=== PATIENT | female | born 2000 | race Caucasian/White ===

== ENCOUNTER 2019-04-02 08:51 | Observation (INO) ==
[2019-04-02] MEDS ORDERED: SODIUM CHLORIDE 0.9% 1000ML 1,000 ML IV ONE (09:21)
[2019-04-02] MEDS ORDERED: CEFEPIME IV STA ×2 (09:21→10:12)
[2019-04-02] MEDS ORDERED: GENTAMICIN IV SCH (09:30)
[2019-04-02 09:51] LABS: Basophils # (auto) 0.01 K/uL (0-0.2); Basophils % (auto) 0.1 %; Eosinophils # (auto) 0.02 K/uL (0-0.5); Eosinophils % (auto) 0.2 %; Hematocrit (blood only) 29.5 % (37-47); Hemoglobin 10.1 g/dL (12.0-16.0); Immature Granulocytes # (auto) 0.01 K/uL (0.00-0.02); Immature Granulocytes % (auto) 0.1 %; Lymphocytes # (auto) 0.95 K/uL (1.2-3.4); Lymphocytes % (auto) 11.6 %; Mean Corpuscular Hemoglobin 35.6 pg (25-34); Mean Corpuscular Hgb Conc 34.2 g/dL (32-36); Mean Corpuscular Volume 103.9 fL (80-100); Monocytes # (auto) 1.18 K/uL (0.11-0.59); Monocytes % (auto) 14.4 %; Neutrophils # (auto) 6.02 K/uL (1.4-6.5); Neutrophils % (auto) 73.6 %; Platelet Count 359 K/uL (130-400); RDW Standard Deviation 57.7 fL (36.4-46.3); Red Blood Count 2.84 M/uL (4.2-5.4); White Blood Count 8.19 K/uL (4.8-10.8)
[2019-04-02 09:55] LABS: Appearance Urine Cloudy (Clear); Bacteria Urine Automated Negative (Negative); Bilirubin Urine Negative (Negative); Blood Urine 1+ (Negative); Color Urine Dark Yellow; Glucose Urine UA Negative (Negative); Ketones Urine Negative (Negative); Leukocyte Esterase Urine Negative (Negative); Nitrite Urine Negative (Negative); Protein Urine Trace (Negative); Specific Gravity Urine 1.024 (1.000-1.030); Urobilinogen Urine Negative (Negative); pH Urine 6.5 (4.5-7.5)
[2019-04-02] MEDS ORDERED: DEXTROSE 5% IV SCH (10:00)
[2019-04-02] MEDS ORDERED: GENTAMICIN SULFATE IV SCH (10:00)
[2019-04-02 10:07] LABS: Albumin Level 3.7 gm/dl (3.4-5.0); BUN Creatinine Ratio 12.2 (10-20); Calcium 9.9 mg/dl (8.5-10.1); Creatinine Clr Calc Pharmacy 104.5 ml/min; Est GFR (African American) 131.8; Est GFR (Non-African American) 113.7; Potassium 3.5 mmol/L (3.5-5.1)
[2019-04-02 10:10] LABS: Bilirubin,Total 0.4 mg/dl (0.2-1); Globulin 3.7 gm/dl (2.5-4.0); Total Protein 7.4 gm/dl (6.4-8.2)
[2019-04-02] MEDS ORDERED: SODIUM CHLORIDE 0.9% IV STA (10:12)
[2019-04-02 10:32] LABS: Influenza A virus by PCR Neg for Influ A (Neg); Influenza B virus by PCR Neg for Influ B (Neg)
--- NOTE | 2019-04-02 10:33 | XRay Report ---
TWO VIEW CHEST CLINICAL HISTORY: Cough and fever. FINDINGS: PA and lateral chest radiographs are compared to study dated 11/08/2017. The cardiomediastin al silhouette is unremarkable. The lungs and pleural spaces are clear. There is no pneumothorax. The bony thorax appears intact. A surgical clip projects over the left apex. IMPRESSION: No active disease in the chest. ACT 112: Negative or not required by law. Electronically signed by: Pancho Serna M.D. 04/02/2019 10:32 AM
[2019-04-02] MEDS ORDERED: ACETAMINOPHEN 1,000 MG/100 ML VIAL IV STA (10:53)
--- NOTE | 2019-04-02 11:11 | Emergency Department Note ---
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 The patient states that she has had a cough for the past week. She states that the cough is productive and also has some head congestion but denies any ear pain or sore throat. The patient states that she called [facility] yesterday and they prescribed a Z-J Luis for her. This morning she woke up and has a temperature of 101.4. She did not take anything for her fever and at triage her temperature was 102.8. She informed me she is not supposed to take anything for her fever at home and is supposed to go to the nearest emergency room. She contacted [facility] and was instructed to come to [facility]. The patient denies any body aches. 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 The patient states that she has a paper with her with instructions from [facility] instructing what to do for her fever. Home Medications Home Medications Medication Instructions Recorded Confirmed Type multivitamin 1 tab PO DAILY@0800 11/08/17 04/02/19 History mv,Ca,min-iron ifwc-ZH-tzfsvb 1 tab PO DAILY@0800 11/08/17 04/02/19 History [Hair,Skin and Nails] azithromycin 250 mg PO QAM 04/02/19 04/02/19 History othjsxpqvmjpq-XS-ffduieiafcotd 30 ml PO UD 04/02/19 04/02/19 History [Vicks NyQuil Cold/Flu (cpm)] fluconazole 400 mg PO DAILY@0804/02/19 04/02/19 History levothyroxine 100 mcg PO DAILY@0500 04/02/19 04/02/19 History omega 2-zpv-slz-fish oil [[place]-3] 1 cap PO DAILY@79904/02/19 04/02/19 History ruxolitinib [Jakafi] 10 mg PO BID 04/02/19 04/02/19 History valganciclovir 900 mg PO DAILY@79904/02/19 04/02/19 History Allergies Allergy/AdvReac Type Severity Reaction Status Date / Time gluten Allergy Severe Gastrointestinal Unverified 04/02/19 10:04 Upset vancomycin AdvReac Severe red man Unverified 04/02/19 10:15 syndrome latex AdvReac Intermediate Rash Unverified 04/02/19 10:15 lidocaine [From Emla] AdvReac Intermediate Rash Unverified 04/02/19 10:15 prilocaine [From Emla] AdvReac Intermediate Rash Unverified 04/02/19 10:15 shellfish derived AdvReac Intermediate Hives Unverified 04/02/19 10:15 Past Med/Surg History Medical History Enzmu-jnocri-uikc disease Non-Hodgkin lymphoma (Resolved) Surgical History Bone marrow transplant status Social History Preferred Language: Bruneian Feels Safe at Home: Yes Smoking Status: Never smoker Review of Systems A total of 10 systems reviewed and were otherwise negative Physical Exam Vital Signs Vital Signs - 24 hr 04/02/19 09:05 04/02/19 10:48 Temperature 39.3 C H 39.5 C H Temperature Source Oral Oral Pulse Rate 156 H Pulse Rate [Left] 121 H Respiratory Rate 22 19 Respiratory Effort / Characteristics Non-Labored Non-Labored Spontaneous Respiratory Depth Normal Normal Blood Pressure 104/71 Blood Pressure [Right Arm] 104/57 L Blood Pressure Mean 82 Blood Pressure Mean [Right Arm] 72 Blood Pressure Position Sitting Blood Pressure Position [Right Arm] Lying Pulse Oximetry 94 96 Oxygen Delivery Method Room Air Room Air Sepsis Recent Fever Within 48 Hours Yes Sepsis New/Unexplained Change in Mental Status No Sepsis Action Taken by Nursing Physician Notified PHYSICAL EXAM: Vital Signs were reviewed: Temperature on arrival was 102.8, patient was also tachycardic at 121. Reviewed Nurse's notes and agree. Oxygen saturation is 96 % on room air which is normal . GENERAL: 18-year-old female appears in no acute distress. MENTAL STATUS: Alert, oriented, coherent. EARS: Canals clear. TMs good light reflex, no erythema or fluid level noted. NOSE: Nasal mucosa with moderate erythema engorgement. PHARYNX: No erythema, no edema noted. No exudate noted. Airway is adequate. NECK: Supple, non-tender. No lymphadenopathy noted. LUNGS: Rhonchi noted throughout both lung almazan with partial clearing with cough. CARDIAC: Regular rate and rhythm without murmur. SKIN: No rashes noted. Course Administered Medications Discontinued Medications Sodium Chloride (Nss 1000ml) 1,000 mls @ 999 mls/hr IV .Q1H1M ONE Stop: 04/02/19 10:21 Last Admin: 04/02/19 09:58 Dose: 999 mls/hr Documented by: [id number] Cefepime HCl 2,750 mg/ Syringe 24.6875 mls @ 5.5 mls/min IV NOW STA; Protocol Stop: 04/02/19 09:25 Last Admin: 04/02/19 10:44 Dose: Not Given Documented by: [id number] Cefepime HCl 2,750 mg/ Sodium (Chloride) 117.1875 mls @ 3.5 mls/min IV NOW STA Stop: 04/02/19 10:45 Last Admin: 04/02/19 10:43 Dose: 3.5 mls/min Documented by: [id number] Acetaminophen (Ofirmev) 1,000 mg in 100 mls @ 400 mls/hr IV NOW STA Stop: 04/02/19 11:07 Last Admin: 04/02/19 11:00 Dose: 400 mls/hr Documented by: [id number] Medical Decision Making Differential Diagnosis Sepsis, pneumonia, influenza, viral URI, UTI Medical Records Attestation: I reviewed the patient's medical records. Home Medications Current Medication List: was personally reviewed by me Laboratory Data Attestation: I reviewed the patient's lab results. Result diagrams: 04/02/19 09:35 04/02/19 09:35 Lab Results 04/02/19 04/02/19 04/02/19 Range/Units 09:35 09:35 09:35 WBC 8.19 (4.8-10.8) K/uL RBC 2.84 L (4.2-5.4) M/uL Hgb 10.1 L (12.0-16.0) g/dL Hct 29.5 L (37-47) % MCV 103.9 H (80-100) fL MCH 35.6 H (25-34) pg MCHC 34.2 (32-36) g/dL RDW Std Deviation 57.7 H (36.4-46.3) fL RDW Coeff of Giles 15.0 H (11.5-14.5) % Plt Count 359 (130-400) K/uL MPV 8.0 (7.4-10.4) fL Immature Gran % (Auto) 0.1 % Neut % (Auto) 73.6 % Lymph % (Auto) 11.6 % [place] % (Auto) 14.4 % Eos % (Auto) 0.2 % Baso % (Auto) 0.1 % Immature Gran # (Auto) 0.01 (0.00-0.02) K/uL Neut # (Auto) 6.02 (1.4-6.5) K/uL Lymph # (Auto) 0.95 L (1.2-3.4) K/uL [place] # (Auto) 1.18 H (0.11-0.59) K/uL Eos # (Auto) 0.02 (0-0.5) K/uL Baso # (Auto) 0.01 (0-0.2) K/uL Sodium 137 (136-145) mmol/L Potassium 3.5 (3.5-5.1) mmol/L Chloride 103 (98-107) mmol/L Carbon Dioxide 30 (21-32) mmol/L Anion Gap 4.0 (3-11) BUN 9 (7-18) mg/dl Creatinine 0.76 (0.6-1.2) mg/dl Est Cr Clr Drug Dosing 104.5 ml/min Est GFR ( Amer) 131.8 Est GFR (Non-Af Amer) 113.7 BUN/Creatinine Ratio 12.2 (10-20) Glucose 118 H (70-99) mg/dl Calcium 9.9 (8.5-10.1) mg/dl Total Bilirubin 0.4 (0.2-1) mg/dl AST 170 H (15-37) U/L ALT 312 H (12-78) U/L Alkaline Phosphatase 408 H (45-117) U/L Total Protein 7.4 (6.4-8.2) gm/dl Albumin 3.7 (3.4-5.0) gm/dl Globulin 3.7 (2.5-4.0) gm/dl Albumin/Globulin Ratio 1.0 (0.9-2) Urine Color Urine Appearance (Clear) Urine pH (4.5-7.5) Ur Specific [place] (1.000-1.030) Urine Protein (Negative) Urine Glucose (UA) (Negative) Urine Ketones (Negative) Urine Blood (Negative) Urine Nitrite (Negative) Urine Bilirubin (Negative) Urine Urobilinogen (Negative) Ur Leukocyte Esterase (Negative) Urine WBC (Auto) (0-5) /hpf Urine RBC (Auto) (0-4) /hpf U Hyaline Cast (Auto) (0-5) /lpf U Epithel Cells (Auto) (0-5) /lpf Urine Bacteria (Auto) (Negative) Influenza Type A (PCR) Neg for Influ A (Neg) Influenza Type B (PCR) Neg for Influ B (Neg) 04/02/19 Range/Units 09:35 WBC (4.8-10.8) K/uL RBC (4.2-5.4) M/uL Hgb (12.0-16.0) g/dL Hct (37-47) % MCV (80-100) fL MCH (25-34) pg MCHC (32-36) g/dL RDW Std Deviation (36.4-46.3) fL RDW Coeff of Giles (11.5-14.5) % Plt Count (130-400) K/uL MPV (7.4-10.4) fL Immature Gran % (Auto) % Neut % (Auto) % Lymph % (Auto) % [place] % (Auto) % Eos % (Auto) % Baso % (Auto) % Immature Gran # (Auto) (0.00-0.02) K/uL Neut # (Auto) (1.4-6.5) K/uL Lymph # (Auto) (1.2-3.4) K/uL [place] # (Auto) (0.11-0.59) K/uL Eos # (Auto) (0-0.5) K/uL Baso # (Auto) (0-0.2) K/uL Sodium (136-145) mmol/L Potassium (3.5-5.1) mmol/L Chloride (98-107) mmol/L Carbon Dioxide (21-32) mmol/L Anion Gap (3-11) BUN (7-18) mg/dl Creatinine (0.6-1.2) mg/dl Est Cr Clr Drug Dosing ml/min Est GFR ( Amer) Est GFR (Non-Af Amer) BUN/Creatinine Ratio (10-20) Glucose (70-99) mg/dl Calcium (8.5-10.1) mg/dl Total Bilirubin (0.2-1) mg/dl AST (15-37) U/L ALT (12-78) U/L Alkaline Phosphatase (45-117) U/L Total Protein (6.4-8.2) gm/dl Albumin (3.4-5.0) gm/dl Globulin (2.5-4.0) gm/dl Albumin/Globulin Ratio (0.9-2) Urine Color Dark Yellow Urine Appearance Cloudy A (Clear) Urine pH 6.5 (4.5-7.5) Ur Specific [place] 1.024 (1.000-1.030) Urine Protein Trace H (Negative) Urine Glucose (UA) Negative (Negative) Urine Ketones Negative (Negative) Urine Blood 1+ H (Negative) Urine Nitrite Negative (Negative) Urine Bilirubin Negative (Negative) Urine Urobilinogen Negative (Negative) Ur Leukocyte Esterase Negative (Negative) Urine WBC (Auto) 1-5 (0-5) /hpf Urine RBC (Auto) 5-10 H (0-4) /hpf U Hyaline Cast (Auto) 1-5 (0-5) /lpf U Epithel Cells (Auto) 5-10 H (0-5) /lpf Urine Bacteria (Auto) Negative (Negative) Influenza Type A (PCR) (Neg) Influenza Type B (PCR) (Neg) Imaging Data Attestation: I personally reviewed and interpreted this imaging study as follows: My Impression: Chest x-ray revealed no acute infiltrate Radiologist's Impression: TWO VIEW CHEST CLINICAL HISTORY: Cough and fever. FINDINGS: PA and lateral chest radiographs are compared to study dated 11/08/2017. The cardiomediastinal silhouette is unremarkable. The lungs and pleural spaces are clear. There is no pneumothorax. The bony thorax appears intact. A surgical clip projects over the left apex. IMPRESSION: No active disease in the chest. ACT 112: Negative or not required by law. Electronically signed by: Pancho Serna M.D. 04/02/2019 10:32 AM Dictated: 04/02/19 103 Transcribed: 04/02/19 1031 Blood Pressure Blood Pressure Findings: Low blood pressure MDM Narrative The patient was evaluated. IV access was obtained. The patient was given 1 L normal saline wide open. CBC and differential, renal profile, LFTs were ordered. Rapid influenza was negative for influenza A and influenza B. After labs were drawn the patient was given Tylenol 1 g IV for fever. Blood cultures were drawn. I contacted [facility] oncology and discussed the patient's case. They recommended following the treatment plan for fever that the patient brought with her to the ER. She needs to be observed for at least 24 hours. Dose orders for cefepime and gentamicin every 8 hours as per directed by [facility]. Chest x-ray was ordered interpreted by myself and the radiologist as above with no acute findings. The hospitalist was consulted for admission. Impression & Plan Fever, History of bone marrow transplant Discharge Plan Visit Data Chief Complaint: Fever Stated Complaint: FEVER ONE YEAR POST BONE MARROW TRANSPLANT ED Provider: Pancho Jorgensen ED Midlevel Provider: Taryn Rowell Discharge Problem: Fever, History of bone marrow transplant Patient Disposition: Being Evaluated by Hospitalist Condition: Good Forms Stand Alone Forms: My [facility] Prescriptions Prescriptions: No Action valganciclovir 450 mg tablet 900 mg PO DAILY@0800 RF: 0 azithromycin 250 mg tablet 250 mg PO QAM RF: 0 fluconazole 200 mg tablet 400 mg PO DAILY@0800 RF: 0 levothyroxine 100 mcg tablet 100 mcg PO DAILY@0500 RF: 0 Jakafi 10 mg tablet 10 mg PO BID RF: 0 Vicks NyQuil Cold/Flu (cpm) 4-30-650 mg/30 mL Liquid 30 ml PO UD RF: 0 [place]-3 350 mg-235 mg- 90 mg-597 mg Capsule,Delayed Release(Dr/Ec) 1 cap PO DAILY@0800 RF: 0 multivitamin Tablet 1 tab PO DAILY@0800 RF: 0 Hair,Skin and Nails 1 mg iron-66.7 mcg-1,000 mcg Tablet 1 tab PO DAILY@0800 RF: 0 Referrals Referrals: Heidi Rincon MD [Primary Care Provider] -
--- NOTE | 2019-04-02 11:20 | History & Physical Report ---
Date of Service April 02, 2019 Assessment & Plan (1) Fever: Admit to PCU on telemetry Vital signs every 4 hours Started cefepime and gentamicin as recommended per [facility] Replenish electrolytes Blood cultures pending Urine cultures pending Gentle IV fluid hydration Regular diet DVT prophylaxis SCDs and teds Patient is mobile/young low risk of DVT Full code Present on Admission?: Yes (2) History of bone marrow transplant: As the above Present on Admission?: Yes (3) Sfqhe-izpsqa-jfvp disease: As the above Will consult hematology oncology to evaluate the patient as well. 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 Patient reports having a fever for 1 day above 100.4 Fahrenheit. She immediately came to the emergency room to be evaluated. The recommendations that we received from [facility] fever above 100.4 Fahrenheit should be evaluated immediately s/p stem cell transplant, drawn blood culture and CBC with differential. Patient should not have rectal temperature measured. Patient should be also started on cefepime 50 mg/kg every 8 hours and gentamicin 2.5 mg/ kg every 8 hours within 1 hour of admission to the emergency room. If this occurs after 4 PM is a standard time emergency room should call and speak to the oncology fellow on-call. If this occurs before 4 PM is in standard time call should be directed to and to speak with oncology triage nurse. As a medical emergency and to be evaluated immediately. Patient appears to be anorexic for the past several days. Patient denies chest pain shortness of breath, abdominal pain, frequency, urgency. Labs are reviewed which shows: WBC is 8.19, hemoglobin 10.1, hematocrit 29.5, platelets 359, sodium 137, potassium 3.5, chloride 103, carbon dioxide 30, anion gap 4, BUN 9, creatinine 0.76, GFR 113.7, glucose 118, calcium 9.9, phosphorus 4.8, bilirubin 0.4, AST 170, ALT 312, alkaline phosphatase 408, total protein 7.4, albumin 3.7, globulin 3.7, albumin globulin ratio 1. Procalcitonin pending, lactate pending. Chest x-rays: PA and lateral chest x-ray compared to November 08, 2017. The cardiomediastinal silhouette is unremarkable. The lungs and pleural spaces are clear. There is no pneumothorax. The bony thorax appears intact. A surgical clip projects over the left upper ex. Blood cultures drawn and pending, urine culture pending. The decision was made to admit patient to PCU on telemetry for fever and possible transplant rejection. Allergies Allergy/AdvReac Type Severity Reaction Status Date / Time gluten Allergy Severe Gastrointestinal Unverified 04/02/19 10:04 Upset vancomycin AdvReac Severe red man Unverified 04/02/19 10:15 syndrome latex AdvReac Intermediate Rash Unverified 04/02/19 10:15 lidocaine [From Emla] AdvReac Intermediate Rash Unverified 04/02/19 10:15 prilocaine [From Emla] AdvReac Intermediate Rash Unverified 04/02/19 10:15 shellfish derived AdvReac Intermediate Hives Unverified 04/02/19 10:15 Home Medications Home Medications Medication Instructions Recorded Confirmed Type multivitamin 1 tab PO DAILY@0800 11/08/17 04/02/19 History mv,Ca,min-iron ucws-IX-brjrft 1 tab PO DAILY@0800 11/08/17 04/02/19 History [Hair,Skin and Nails] azithromycin 250 mg PO QAM 04/02/19 04/02/19 History qrsuygkbzsxak-QM-xkggkfnfjsxfv 30 ml PO UD 04/02/19 04/02/19 History [Vicks NyQuil Cold/Flu (cpm)] fluconazole 400 mg PO DAILY@0800 04/02/19 04/02/19 History levothyroxine 100 mcg PO DAILY@0500 04/02/19 04/02/19 History omega 9-rsv-gkl-fish oil [[place]-3] 1 cap PO DAILY@0800 04/02/19 04/02/19 History ruxolitinib [Jakafi] 10 mg PO BID 04/02/19 04/02/19 History valganciclovir 900 mg PO DAILY@0800 04/02/19 04/02/19 History Past Med/Surg History Medical History Jyrff-krgoad-toij disease Non-Hodgkin lymphoma (Resolved) Surgical History Bone marrow transplant status Social History Preferred Language: Maldivian Feels Safe at Home: Yes Smoking Status: Never smoker Review of Systems Review of Systems: All systems reviewed & are unremarkable except as noted in HPI & below Physical Exam Constitutional: WD/WN, vitals as above well developed and + ill appearing Eyes: PERRL, conjunctivae normal, anicteric sclerae ENMT: external ear and nose normal, oropharynx normal Neck: trachea midline, no thyromegaly Respiratory: normal respiratory effort, lungs clear to auscultation Cardiovascular: Rate/Rhythm: + tachycardic Heart Sounds: normal S1 and normal S2 Vessels: dorsalis pedis pulses present Gastrointestinal (Abdomen): normal bowel sounds, soft, nontender, no hepatosplenomegaly Musculoskeletal: no cyanosis or clubbing, extremities motor strength 5/5 Skin: no rashes, warm and dry Neurologic: patellar DTR's 2+ bilat, sensation intact Psychiatric: A+Ox3, euthymic affect Genitourinary: no vaginal lesions, no adnexal mass Lymphatic: no cervical or axillary lymphadenopathy Results & Data Vital Signs (Past 12 Hours) Vital Signs Temp Pulse Pulse Resp BP BP Pulse Ox 04/02/19 10:48 39.5 C H 121 H 19 104/57 L 96 04/02/19 09:05 39.3 C H 156 H 22 104/71 94 Code Status & VTE Plan Code Status Full code VTE Prophylaxis Plan VTE Prophylaxis will be ordered: Yes PG Care Time/CCT Total # of Minutes Spent Total Time Spent with Patient: Total time spent is greater than 50% in coordination of care (as documented) at patient's floor/unit and/or counseling patient: Coding Diagnoses Fever R50.9 Fever type: unspecified History of bone marrow transplant Z94.81 Bbeye-fjyorq-vqkm disease D89.813 (1) Fever Fever type: unspecified Qualified Code(s): R50.9 - Fever, unspecified
[2019-04-02] MEDS ORDERED: CEFEPIME 1,000 MG in SYRINGE 0 ML IV SCH (12:54)
[2019-04-02] MEDS ORDERED: ONDANSETRON INJ 2 MG/ML 2 ML VIAL IV PRN (12:54)
[2019-04-02] MEDS ORDERED: ACETAMINOPHEN 325 MG TAB PO PRN (12:54)
[2019-04-02] MEDS ORDERED: CEFEPIME CONSULT ACTIVE PRN (12:54)
[2019-04-02] MEDS ORDERED: POLYETHYLENE (MIRALAX) 17 GM PACK PO PRN (12:54)
[2019-04-02] MEDS ORDERED: MAGNESIUM HYDROXIDE SUSP 30 ML UDC PO PRN (12:54)
[2019-04-02] MEDS ORDERED: ALUMINUM/MAGNESIUM SUSP 30 ML UDC PO PRN (12:54)
[2019-04-02] MEDS ORDERED: GUAIFENESIN/CODEINE 200MG/20MG 10ML UDC PO PRN (13:13)
[2019-04-02] MEDS ORDERED: IPRATROPIUM BROMIDE NEB SOLN 0.02% 2.5 ML VIAL NEB PRN (13:13)
[2019-04-02] MEDS ORDERED: KETOROLAC TROMETHAMINE 15 MG/ML VIAL IV PRN (13:15)
[2019-04-02] MEDS ORDERED: BENZONATATE 100 MG CAPSULE PO PRN (13:16)
[2019-04-02 13:24] LABS: Eosinophils # (auto) 0.02 K/uL (0-0.5); Eosinophils % (auto) 0.3 %; Hematocrit (blood only) 27.5 % (37-47); Hemoglobin 9.3 g/dL (12.0-16.0); Immature Granulocytes # (auto) 0.01 K/uL (0.00-0.02); Immature Granulocytes % (auto) 0.1 %; Lymphocytes # (auto) 1.32 K/uL (1.2-3.4); Lymphocytes % (auto) 19.4 %; Mean Corpuscular Hemoglobin 35.4 pg (25-34); Mean Corpuscular Hgb Conc 33.8 g/dL (32-36); Mean Corpuscular Volume 104.6 fL (80-100); Mean Platelet Volume 8.2 fL (7.4-10.4); Monocytes # (auto) 1.09 K/uL (0.11-0.59); Neutrophils # (auto) 4.36 K/uL (1.4-6.5); Neutrophils % (auto) 64.2 %; Platelet Count 296 K/uL (130-400); RDW Coefficient of Variation 15.2 % (11.5-14.5); RDW Standard Deviation 58.1 fL (36.4-46.3); Red Blood Count 2.63 M/uL (4.2-5.4)
[2019-04-02 13:55] LABS: Thyroid Stimulating Hormone < 0.005 uIu/ml (0.300-4.500)
[2019-04-02] MEDS ORDERED: POTASSIUM CHLORIDE 20 MEQ TABCR PO ONE (14:00)
[2019-04-02] MEDS: NSS + 20MEQ KCL 20 MEQ/1,000 ML BAG IV SCH ×2 (14:10→23:41)
[2019-04-02] MEDS ORDERED: GENTAMICIN CONSULT ACTIVE PRN (14:33)
--- NOTE | 2019-04-02 14:46 | Electrocardiogram Report ---
Test Reason : Blood Pressure : / mmHG Vent. Rate : 088 BPM Atrial Rate : 088 BPM P-R Int : 172 ms QRS Dur : 080 ms QT Int : 376 ms P-R-T Axes : 074 038 043 degrees QTc Int : 454 ms Normal sinus rhythm with sinus arrhythmia Normal ECG No previous ECGs available Confirmed by Gilbert Garcia ([id number]) on 04/02/2019 2:45:45 PM Referred By: REFERRED SELF Confirmed By:Gilbert Garcia
--- NOTE | 2019-04-02 15:03 | Pharmacy Report ---
Pharmacy Abx Initial Consult - Date of Service April 02, 2019 - Pharmacy Dosing Scope Date of Consult: 04/02 Consultation requested by: Dr. Ny Pharmacy is consulted to initiate cefepime/gentamicin IV/PO dosing therapy, order appropriate labs and adjust drug dose/frequency. - Subjective The patient is a 18 year old F admitted on 04/02/19 11:13. - Objective Height: 5 ft 8 in Weight: 57.5 kg Vital Signs (Past 12hrs): Vital Signs Temp Pulse Pulse Resp BP BP Pulse Ox 04/02/19 12:54 37.5 C 116 H 18 100/65 100 04/02/19 12:07 37.5 C 108 H 18 108/61 95 04/02/19 11:59 37.5 C 04/02/19 10:48 39.5 C H 121 H 19 104/57 L 96 04/02/19 09:05 39.3 C H 156 H 22 104/71 94 Lab Results (24hrs): Laboratory Tests (24 Hours) 04/02/19 04/02/19 04/02/19 13:08 13:08 09:35 WBC 6.80 Neut # (Auto) 4.36 Creatinine 0.76 Est Cr Clr Drug Dosing 104.5 Procalcitonin 0.17 04/02/19 09:35 WBC 8.19 Neut # (Auto) 6.02 Creatinine Est Cr Clr Drug Dosing Procalcitonin Micro Results: 04/02/19 09:57 Aerobic Blood Culture - Pending Blood Anaerobic Blood Culture - Pending 04/02/19 09:35 Aerobic Blood Culture - Pending Blood Anaerobic Blood Culture - Pending - Risk Factors for Resistance s/p stem cell transplant - Assessment & Plan Assessment 18 year old F admitted for fevers. She is post bone marrow transplant 1 year ago for non-Hodgkin's lymphoma and leukemia. She had instructions from [facility] for fevers to begin antibiotic regimen: cefepime 50 mg/kg q8H and gentamicin 2.5 mg/kg q8H. Patient was febrile with Tmax 39.5. Confirmed with [facility] maximum c efepime dose 2 gm. Plan Cefepime 2 gm q8H appropriate for renal function Gentamicin * Dose: 2.5 mg/kg every 8 hrs based on dosing weight of 55.6 mg (actual body weight) * Peak ordered for 04/03 @1330 and trough @1100 Pharmacy will continue to follow and will adjust dose/frequency as necessary. Thank you.
[2019-04-02] MEDS: GENTAMICIN SULFATE 140 MG in DEXTROSE 5% 100 ML IV SCH (20:10)
[2019-04-02] MEDS: CEFEPIME 2,000 MG in SYRINGE 7.5 ML IV SCH (20:11)
[2019-04-03] MEDS: GENTAMICIN SULFATE 140 MG in DEXTROSE 5% 100 ML IV SCH (03:10)
[2019-04-03] MEDS: CEFEPIME 2,000 MG in SYRINGE 7.5 ML IV SCH (03:10)
[2019-04-03] MEDS ORDERED: LEVOTHYROXINE SODIUM 100 MCG TABLET PO SCH (05:00)
[2019-04-03 07:11] LABS: Basophils # (auto) 0.01 K/uL (0-0.2); Basophils % (auto) 0.2 %; Eosinophils # (auto) 0.11 K/uL (0-0.5); Eosinophils % (auto) 1.7 %; Hematocrit (blood only) 28.6 % (37-47); Hemoglobin 9.6 g/dL (12.0-16.0); Immature Granulocytes # (auto) 0.02 K/uL (0.00-0.02); Immature Granulocytes % (auto) 0.3 %; Lymphocytes # (auto) 0.94 K/uL (1.2-3.4); Lymphocytes % (auto) 14.7 %; Mean Corpuscular Hemoglobin 35.6 pg (25-34); Mean Corpuscular Hgb Conc 33.6 g/dL (32-36); Mean Corpuscular Volume 105.9 fL (80-100); Mean Platelet Volume 8.1 fL (7.4-10.4); Monocytes # (auto) 0.76 K/uL (0.11-0.59); Monocytes % (auto) 11.9 %; Neutrophils # (auto) 4.57 K/uL (1.4-6.5); Neutrophils % (auto) 71.2 %; Platelet Count 278 K/uL (130-400); RDW Coefficient of Variation 15.1 % (11.5-14.5); RDW Standard Deviation 58.2 fL (36.4-46.3); White Blood Count 6.41 K/uL (4.8-10.8)
[2019-04-03 07:56] LABS: Alanine Aminotransferase 262 U/L (12-78); Albumin Globulin Ratio 0.9 (0.9-2); Albumin Level 3.2 gm/dl (3.4-5.0); Alkaline Phosphatase 378 U/L (45-117); Aspartate Aminotransferase 129 U/L (15-37); BUN Creatinine Ratio 16.1 (10-20); Bilirubin,Total 0.4 mg/dl (0.2-1); Blood Urea Nitrogen 8 mg/dl (7-18); Carbon Dioxide 24 mmol/L (21-32); Chloride 111 mmol/L (98-107); Creatinine Clr Calc Pharmacy 155.8 ml/min; Est GFR (African American) > 150.0; Est GFR (Non-African American) 138.5; Globulin 3.5 gm/dl (2.5-4.0); Glucose 97 mg/dl (70-99); Potassium 4.3 mmol/L (3.5-5.1); Sodium 141 mmol/L (136-145); Total Protein 6.7 gm/dl (6.4-8.2)
[2019-04-03] MEDS ORDERED: MULTIVITAMIN TAB PO SCH (08:00)
[2019-04-03] MEDS ORDERED: OMEGA-3 (PURIFIED FISH OIL) 1 GM CAP PO SCH (08:00)
[2019-04-03] MEDS ORDERED: FLUCONAZOLE 100 MG TAB PO SCH (08:00)
[2019-04-03] MEDS ORDERED: DIFLUCAN SCH (08:00)
[2019-04-03] MEDS ORDERED: NON-FORMULARY MEDICATION (Mv,Ca,Min-Iron Gluc-Fa-Biotin [Hair,Skin And Nails] 1 TAB) PO SCH (08:00)
--- NOTE | 2019-04-03 08:49 | Consultation Report ---
DATE OF CONSULTATION: 04/03/2019 REASON FOR CONSULTATION: Fever of unclear origin. HISTORY OF PRESENT ILLNESS: Carlos is a very pleasant 18-year-old female with history of primary mediastinal B-cell non-Hodgkin's lymphoma diagnosed back in 2017. She has received most of her treatment at [facility] in [place]. She received induction R-EPOCH x6 cycles, but unfortunately relapsed within 1 year. 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 She is approximately 1 year post-transplant. She was started on standard immunosuppression with tacrolimus and CellCept, but unfortunately developed acute renal injury and now is utilizing Jakafi as her sole immunosuppressive agent. She remains on prophylactic antiviral and antifungal agents. She last saw the transplant team a couple of weeks ago. She has specific instructions, if fever develops, she is to contact them and report to a local medical authorities which she did. Apparently, her fevers hit 100.4 degrees Fahrenheit or greater, gill her presentation to our local Emergency Room. The patient feels well at present. 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 Her liver transaminases are persistently elevated and she relates her current values are actually below her baseline. Both blood and throat cultures are pending at the time of dictation. Again, the patient feels relatively well and is pushing for expedient discharge. She is presently freshman at [employer] and wants to get back to her schoolwork. 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 She was a 10/10 HLA match. MEDICATIONS: Include multivitamin 1 p.o. daily, azithromycin 250 mg p.o. daily, Nyquil Cold and Flu 30 mL p.o. daily, fluconazole 400 mg p.o. daily, levothyroxine 100 mcg p.o. daily, omega-3 fish oil 1 capsule p.o. daily, Jakafi 10 mg p.o. b.i.d., valganciclovir 900 mg p.o. daily. ALLERGIES: GLUTEN, VANCOMYCIN, LATEX, LIDOCAINE, PRILOCAINE, SHELLFISH. SOCIAL HISTORY: The patient is single. She is a University student. She is a nonsmoker, nondrinker. FAMILY HISTORY: Reports grandfather suffered from a soft tissue sarcoma, otherwise noncontributory. REVIEW OF SYSTEMS: GENERAL: Positive for low-grade fever, no chills, or rigors. HEENT: Negative for headaches, lightheadedness or dizziness. No visual or hearing deficits. No sinus symptoms, sore throat or dysphagia. LYMPH: No history of lymphadenopathy. Previous history of primary mediastinal B-cell lymphoma. HEART: Negative for angina or palpitations. No history of coronary artery disease. PULMONARY: No history of COPD. She is not short of breath, dyspneic or orthopneic. No cough or hemoptysis. GASTROINTESTINAL: Positive for chronic graft versus host disease. No current diarrhea, nausea, vomiting, abdominal pain, hematochezia or melena stools. GENITOURINARY: No hematuria, dysuria, urinary incontinence. PSYCHIATRIC: Negative for anxiety, depression or psychoses. ENDOCRINE: Negative for diabetes mellitus. Positive for hypothyroidism. NEUROLOGIC: Negative for seizure, stroke, or migraine headache. MUSCULOSKELETAL: No arthralgias or myalgias. No muscle weakness. HEMATOLOGIC: Negative for anemia, thrombophilia or bleeding diathesis. PHYSICAL EXAMINATION: GENERAL: A very pleasant 18-year-old female, in no acute distress. VITAL SIGNS: Temperature 36.9, pulse 84, respiratory rate 20, blood pressure 101/63. SKIN: Warm, dry, noncyanotic with no direct evidence of ongoing GVHD issues. HEENT: Head is atraumatic, normocephalic. Eyes: PERRLA, EOMI. Sclerae nonicteric. No conjunctival injection. Nares are patent without rhinorrhea or discharge. Careful examination of the throat reveals no evidence of oral GVHD. NECK: Supple without JVD or thyromegaly. LYMPH: No cervical or supraclavicular or axillary palpable nodes. HEART: Regular rate and rhythm. No clicks, rubs, murmurs or gallops. LUNGS: Clear to auscultation bilaterally. ABDOMEN: Soft, nontender, nondistended. No hepatic tenderness. No palpable hepatosplenomegaly. No rigidity or guarding. EXTREMITIES: Musculoskeletal strength and pulses are equal in all 4 quadrants. No clubbing, cyanosis or edema. NEUROLOGICALLY: She is awake, alert and oriented x3. Cranial nerves are grossly intact. LABORATORY DATA: WBC count 6410, hemoglobin 9.6, platelet count 278,000. Electrolytes are pending. RADIOGRAPHIC DATA: Chest x-ray was negative on admission. IMPRESSION: 1. Fever of unknown origin. 2. Status post allogeneic bone marrow transplant (sister). 3. 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 4. Primary diagnosis of mediastinal B-cell non-Hodgkin's lymphoma. 5. Hypothyroidism. PLAN: This is my first encounter with Carlos. Apparently, she previously followed with Dr. Robel Wlels, pediatric bridge repair crew person. She was diagnosed at age 16 with primary mediastinal B-cell non-Hodgkin's lymphoma, received R-EPOCH as induction x6 cycles; however, relapse within 1 year. The patient does not recall the reinduction regimen; however, does advise me she received high dose methotrexate, Thiotepa and whole body irradiation from a total body irradiation as conditioning prior to transplant. Her sister was a 10/10 match and she is now 1 year post-transplant. She was initially placed on standard immunosuppressive agent. ADDENDUM PLAN: Carlos is a very pleasant 18-year-old female patient who was admitted to [facility] yesterday with low-grade fever. She was originally diagnosed with primary mediastinal B-cell lymphoma back in 2017 and most of her care took place at [facility] [place]. She was induced with R-EPOCH x6 cycles, unfortunately developed a relapse within a year. She received reinduction followed by allogeneic bone marrow transplant from her sister who was a 10/10 HLA match. Transplant took place in March 2018. She was placed on standard immunosuppression, CellCept and tacrolimus, which was poorly tolerated causing acute renal injury. She is now on Jakafi as well as prophylactic antimicrobials. The transplant team saw Carlos a couple weeks ago. She developed a fever greater than 100.4 and was instructed to present to the Emergency Room. Thus far, throat and blood cultures are pending. It would appear her fevers broken and see no reason why she cannot be discharged within the next 24 hours should her fevers mariana. I would continue her prophylactic antimicrobials as prescribed. Her peripheral blood counts reflect a macrocytic anemia, but otherwise stable WBC and platelet count. Carlos plans to reconvene with transplant physicians on spring. Once she is medically stable, I see no reason why she cannot be discharged to return to her schoolwork. I have offered to take over Carlos's care locally should she desire. We will discuss informally with Dr. Wells. I have nothing further to add at this time. Agree with current management. RK
[2019-04-03] MEDS ORDERED: VALGANCICLOVIR SCH (09:00)
[2019-04-03] MEDS ORDERED: AZITHROMYCIN 250 MG TAB PO SCH ×2 (09:00)
--- NOTE | 2019-04-03 10:09 | Hospitalist Progress Note ---
Date of Service April 03, 2019 Assessment & Plan (1) Fever: The patient was prescribed a Z-J Luis prior to this admission which she is currently taking. Symptomatically she has acute bronchitis which is the probable source of the fever. If the blood cultures are negative today, she will be discharged home to finish the Z-J Luis as directed. (2) History of bone marrow transplant: Oncology consultation noted (3) Vgdrg-bugrfu-vruz disease: Ruled out. Appreciate oncology consultation. Disposition: Home today if blood cultures are negative Admission and Anticipated Discharge Date Admission Date: April 02, 2019 Subjective Alert and oriented. Family is at the bedside. Symptomatically, she has acute bronchitis with mild bronchospasm. She is not subjectively wheezy. She was given a Z-J Luis several days ago which she is currently taking. Otherwise she is stable. Case discussed with oncology this morning. The first set of blood cultures is still pending but we should have a report shortly and probably they will be negative. She is anxious to leave the hospital to get back to her [employer] classes. She will be discharged today if the blood cultures are negative and she will continue her Z-J Luis until it is gone. Review of Systems Constitutional: no fever, no chills, no fatigue, no malaise, no weakness, no weight loss and no weight gain Eyes: no eye pain, no photophobia and no worsening vision Ear, Nose, Mouth, Throat: no ear pain, no hearing loss, no dizziness, no mouth lesions, no sore throat, no hoarseness, no dysphagia and no pain with swallowing Respiratory: + cough, + dyspnea, + dyspnea on exertion, + hemoptysis, + sputum production and + wheezing Nonproductive cough. Cardiovascular: no chest pain, no chest pain at rest, no chest pain with activity, no dyspnea, no dyspnea at rest, no dyspnea on exertion, no orthopnea, no palpitations, no lightheadedness, no syncope and no edema Gastrointestinal: no abdominal pain, no heartburn, no nausea, no vomiting, no pain with swallowing, no dysphagia, no change in bowel habits, no diarrhea/loose stools, no blood in stools and no melena Genitourinary: no dysuria, no urinary frequency, no urinary urgency, no urinary incontinence, no hematuria, no dysmenorrhea and no abnormal vaginal bleeding Musculoskeletal: no joint pain, no deformity, no stiffness, no limited range of motion, no muscle weakness and no muscle atrophy Integumentary: no rash, no lesions, no erythema, no pruritus, no urticaria and no unusual bruising Neurologic: no gait abnormality, no unsteadiness, no falls, no localized weakness, no generalized weakness, no paralysis, no loss of sensation, no tingling, no numbness, no paresthesia, no lack of coordination, no abnormal movements, no restless legs, no seizure-like activity, no dizziness, no syncope, no headache(s) and no memory loss Psychiatric: no behavioral changes, no depression, no suicidal ideation, no homicidal ideation, no panic attacks, no auditory hallucinations and no visual hallucinations Endocrine: no fatigue, no polydipsia, no polyuria, no cold intolerance, no heat intolerance and no flushing Hematologic / Lymphatic: no easy bleeding, no easy bruising, no lymphadenopathy, no night sweats and no unexplained weight loss Allergy / Immunological: no lip swelling, no seasonal rhinorrhea, no tongue swelling, no urticaria and no wheezing Physical Exam Constitutional: WD/WN, vitals as above well developed and + ill appearing Eyes: PERRL, conjunctivae normal, anicteric sclerae ENMT: external ear and nose normal, oropharynx normal Neck: trachea midline, no thyromegaly Respiratory: Midline rhonchi with forced cough. Faint bilateral expiratory wheezes. No dullness to percussion. No inspiratory rales. Normal respiratory rate. No respiratory distress Cardiovascular: Heart Sounds: normal S1 and normal S2 Vessels: dorsalis pedis pulses present Gastrointestinal (Abdomen): normal bowel sounds, soft, nontender, no hepatosplenomegaly Musculoskeletal: no cyanosis or clubbing, extremities motor strength 5/5 Skin: no rashes, warm and dry Neurologic: patellar DTR's 2+ bilat, sensation intact Psychiatric: A+Ox3, euthymic affect Genitourinary: no vaginal lesions, no adnexal mass Lymphatic: no cervical or axillary lymphadenopathy Results & Data ([facility]) Vital Signs (Past 12 Hours) Vital Signs Temp Pulse Resp BP Pulse Ox 04/03/19 07:34 36.9 C 84 20 101/63 100 04/03/19 03:05 36.5 C 82 16 102/63 97 04/02/19 23:10 36.9 C 85 16 99/62 L 96 PG Care Time/CCT Total # of Minutes Spent Total Time Spent with Patient: Total time spent is greater than 50% in coordination of care (as documented) at patient's floor/unit and/or counseling patient: Coding Level of Care Code 29324 Subseq Hosp Care Lvl 3 Diagnoses Fever R50.9 Fever type: unspecified History of bone marrow transplant Z94.81 Squba-hozbdw-atrm disease D89.813 (1) Fever Fever type: unspecified Qualified Code(s): R50.9 - Fever, unspecified
--- NOTE | 2019-04-03 10:10 | Hospitalist Progress Note ---
Date of Service April 03, 2019 Assessment & Plan Admission and Anticipated Discharge Date Admission Date: April 02, 2019 Results & Data ([facility]) Vital Signs (Past 12 Hours) Vital Signs Temp Pulse Resp BP Pulse Ox 04/03/19 07:34 36.9 C 84 20 101/63 100 04/03/19 03:05 36.5 C 82 16 102/63 97 04/02/19 23:10 36.9 C 85 16 99/62 L 96 PG Care Time/CCT Total # of Minutes Spent Total Time Spent with Patient: Total time spent is greater than 50% in coordination of care (as documented) at patient's floor/unit and/or counseling patient: Coding
--- NOTE | 2019-04-03 10:55 | Discharge Summary ---
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 Patient reports having a fever for 1 day above 100.4 Fahrenheit. She immediately came to the emergency room to be evaluated. The recommendations that we received from [facility] fever above 100.4 Fahrenheit should be evaluated immediately s/p stem cell transplant, drawn blood culture and CBC with differential. Patient should not have rectal temperature measured. Patient should be also started on cefepime 50 mg/kg every 8 hours and gentamicin 2.5 mg/kg every 8 hours within 1 hour of admission to the emergency room. If this occurs after 4 PM is a standard time emergency room should call and speak to the oncology fellow on-call. If this occurs before 4 PM is in standard time call should be directed to and to speak with oncology triage nurse. As a medical emergency and to be evaluated immediately. Patient appears to be anorexic for the past several days. Patient denies chest pain shortness of breath, abdominal pain, frequency, urgency. Labs are reviewed which shows: WBC is 8.19, hemoglobin 10.1, hematocrit 29.5, platelets 359, sodium 137, potassium 3.5, chloride 103, carbon dioxide 30, anion gap 4, BUN 9, creatinine 0.76, GFR 113.7, glucose 118, calcium 9.9, phosphorus 4.8, bilirubin 0.4, AST 170, ALT 312, alkaline phosphatase 408, total protein 7.4, albumin 3.7, globulin 3.7, albumin globulin ratio 1. Procalcitonin pending, lactate pending. Chest x-rays: PA and lateral chest x-ray compared to November 08, 2017. The cardiomediastinal silhouette is unremarkable. The lungs and pleural spaces are clear. There is no pneumothorax. The bony thorax appears intact. A surgical clip projects over the left upper ex. Blood cultures drawn and pending, urine culture pending. The decision was made to admit patient to PCU on telemetry for fever and possible transplant rejection. Admission Exam Per Admitting Provider Constitutional: WD/WN, vitals as above well developed and + ill appearing Eyes: PERRL, conjunctivae normal, anicteric sclerae ENMT: external ear and nose normal, oropharynx normal Neck: trachea midline, no thyromegaly Respiratory: normal respiratory effort, lungs clear to auscultation Cardiovascular: Rate/Rhythm: + tachycardic Heart Sounds: normal S1 and normal S2 Vessels: dorsalis pedis pulses present Gastrointestinal (Abdomen): normal bowel sounds, soft, nontender, no hepatosplenomegaly Musculoskeletal: no cyanosis or clubbing, extremities motor strength 5/5 Skin: no rashes, warm and dry Neurologic: patellar DTR's 2+ bilat, sensation intact Psychiatric: A+Ox3, euthymic affect Genitourinary: no vaginal lesions, no adnexal mass Lymphatic: no cervical or axillary lymphadenopathy Principal Diagnosis Fever in immunosuppressed patient Discharge Exam Constitutional WD/WN, vitals as above Eyes PERRL, conjunctivae normal, anicteric sclerae ENMT external ear and nose normal, oropharynx normal Neck trachea midline, no thyromegaly Respiratory midline ronchi, failnt bilateral end expiratory wheezing Cardiovascular RRR, no murmur, no edema Gastrointestinal (Abdomen) normal bowel sounds, soft, nontender, no hepatosplenomegaly Musculoskeletal no cyanosis or clubbing, extremities motor strength 5/5 Skin no rashes, warm and dry Neurologic patellar DTR's 2+ bilat, sensation intact CN's II-XI intact bilaterally Discharge Data Allergies Allergy/AdvReac Type Severity Reaction Status Date / Time gluten AdvReac Severe Gastrointestinal Unverified 04/02/19 13:01 Upset vancomycin AdvReac Severe red man Unverified 04/02/19 10:15 syndrome latex AdvReac Intermediate Rash Unverified 04/02/19 10:15 lidocaine [From Emla] AdvReac Intermediate Rash Unverified 04/02/19 10:15 prilocaine [From Emla] AdvReac Intermediate Rash Unverified 04/02/19 10:15 shellfish derived AdvReac Intermediate Hives Unverified 04/02/19 10:15 Consultations 04/02/19 09:57 ED Decision to Admit Stat 04/02/19 12:54 Consult Hematology Routine Hospital Course (1) Fever: The patient was prescribed a Z-J Luis prior to this admission which she is currently taking. Symptomatically she has acute bronchitis which is the probable source of the fever. If the blood cultures are negative today, she will be discharged home to finish the Z-J Luis as directed. (2) History of bone marrow transplant: Oncology consultation noted (3) Idxmy-bylotr-ndex disease: Ruled out. Appreciate oncology consultation. Disposition: Home today if blood cultures are negative Total Time Total Time Spent Total Time Spent (In Minutes): 35 Discharge Plan Discharge Items Patient Disposition: Home - Self-Care Reason For Visit: SEPSIS, TRANSAMINITIS Discharge Diagnosis: Acute bronchitis with fever Condition on Discharge: Good Activity: Resume your previous activity Lifting Comment: No restrictions Bathing: No limitations Exercise/Sports: Gradually increase as tolerated Driving/Machine Use: No limitations Weightbearing: Full weightbearing Non-emergency contact: Primary Care Provider Call non-emergency contact if: your symptoms worsen Follow-up/Referrals: Heidi Rincon MD [Primary Care Provider] - Diet: Regular Addtl Attending Provider Instructions: Finish Z-J Luis as directed Pending Studies at Discharge: No Stand-Alone Forms: My [employer], Smoking Cessation Medications and DC Order Prescriptions: Continued valganciclovir 450 mg tablet 900 mg PO DAILY@0800 RF: 0 azithromycin 250 mg tablet 250 mg PO QAM RF: 0 fluconazole 200 mg tablet 400 mg PO DAILY@0800 RF: 0 levothyroxine 100 mcg tablet 100 mcg PO DAILY@0500 RF: 0 Jakafi 10 mg tablet 10 mg PO BID RF: 0 Vicks NyQuil Cold/Flu (cpm) 4-30-650 mg/30 mL Liquid 30 ml PO UD RF: 0 [place]-3 350 mg-235 mg- 90 mg-597 mg Capsule,Delayed Release(Dr/Ec) 1 cap PO DAILY@0800 RF: 0 multivitamin Tablet 1 tab PO DAILY@0800 RF: 0 Hair,Skin and Nails 1 mg iron-66.7 mcg-1,000 mcg Tablet 1 tab PO DAILY@0800 RF: 0 Discharge Orders: Discharge Order (Routine); Ordered 04/03/19 Ordered By: Daniel Mott/Other Patient Handouts: Bronchitis Acute Dc Admission Data Admit Date/Time: 04/02/19 11:13 Attending Provider: Daniel Millan Admit Provider: Addi Ny Primary Care Provider: Heidi Rincon Other Providers: Arturo Ramos James V Other Interventions: Discharge Summary Assessment (RN) Last Done: 04/03/19 10:35 Coding Level of Care Code D/C Day Management >30 mins Diagnoses Fever R50.9 Fever type: unspecified History of bone marrow transplant Z94.81 Jbxpg-hywvec-iihq disease D89.813 Time Spent (min) 35
== END 2019-04-03 11:19 | disposition home or self-care (01) ==
LOC: ED 08:51 → 2S 11:13 → INTOOBSV 11:13 → SUATTDRO 11:13 → 2S 12:07